=== PATIENT | female | born 1965 | race Caucasian/White ===

== ENCOUNTER 2019-04-18 09:03 | Inpatient (IN) | payer OTHER ==
[~2019-04-18] VITALS: Ht 172.7 cm; Wt 77.8 kg
--- NOTE | 2019-04-18 09:39 | NUR ---
PT MOVED TO ROOM
--- NOTE | 2019-04-18 09:42 | NUR ---
pt to ed from home "I think i'm having a stroke". per pt confused when she woke up at 0730. denies falls/trauma/etoh withdrawal. gait steady. oriented to self. slow to answer. slow to follow commands. unable to breathalyze. drinks 5 shots/day. hypertensive 200s/100s. plan labs/ct/ua. ermd in room for eval. call lindsay in reach. as
--- NOTE | 2019-04-18 09:51 | NUR ---
shara. alexander sent. bgl 106. to ct. as
[2019-04-18] MEDS ORDERED: hydrALAzine 20 MG/ML, 1ML IV ONE (10:00)
[2019-04-18] MEDS ORDERED: hydrALAzine 20 MG/ML, 1ML ONE (10:00)
--- NOTE | 2019-04-18 10:43 | NUR ---
ct shows stroke pt to be admitted. pearrl 2. equal beef lugger. no drift. 5/5 strength all extrem. pt confused to situation/place/time. gets confused following commands. call lindsay in reach. as
[2019-04-18 10:45] LABS: BASOPHILS # (AUTO) 0.03 x10^3/uL (0-0.1); BASOPHILS % (AUTO) 0 % (0-1); EOSINOPHILS # (AUTO) 0.24 x10^3/uL (0-0.4); EOSINOPHILS % (AUTO) 3 % (1-7); LYMPHOCYTES # (AUTO) 1.16 x10^3/uL (1-3.4); LYMPHOCYTES % (AUTO) 16 % (22-44); MD NO; MEAN CORPUSCULAR HEMOGLOBIN 32.3 pg (27.0-34.8); MEAN CORPUSCULAR HGB CONC 33.2 g/dL (32.4-35.8); MEAN CORPUSCULAR VOLUME 97.2 fL (80-100); MEAN PLATELET VOLUME 7.9 fL (7.4-10.4); MONOCYTES # (AUTO) 0.42 x10^3/uL (0.2-0.8); MONOCYTES % (AUTO) 6 % (2-9); NEUTROPHILS # (AUTO) 5.49 x10^3/uL (1.8-6.8); NEUTROPHILS % (AUTO) 75 % (42-75); PLATELET COUNT 334 x10^3/uL (130-400); RED BLOOD COUNT 4.95 x10^6/uL (3.82-5.3); RED CELL DISTRIBUTION WIDTH 12.5 % (9.6-15.2)
[2019-04-18] MEDS ORDERED: ASPIRIN 325 MG TABLET ONE (10:48)
[2019-04-18 10:54] LABS: INTERNATIONAL NORMALIZED RATIO 0.96 (0.93-1.1); PROTHROMBIN TIME 10.1 Seconds (9.6-11.5)
--- NOTE | 2019-04-18 10:57 | NUR ---
DR MENDES SPOKE WITH DR FORD
[2019-04-18] MEDS ORDERED: ASPIRIN 325 MG TABLET PO ONE (11:00)
[2019-04-18] MEDS ORDERED: ONDANSETRON 2MG/ML, 2ML ONE (11:15)
[2019-04-18 11:23] LABS: HCG UR SG 1.021 (1.003-1.030); MICROSCOPIC AUTO
[2019-04-18 11:24] LABS: CULTURE INDICATED? NO
--- NOTE | 2019-04-18 11:24 | NUR ---
PT VOMITING WHILE HOSPITALIST IN ROOM. RECEIVED VERBAL ORDER TO GIVE ZOFRAN, NOTED ON MAR
[2019-04-18] MEDS ORDERED: LORazepam 2 MG/ML, 1ML IV PRN ×3 (11:30)
[2019-04-18] MEDS ORDERED: LORazepam 0.5MG TABLET PO PRN (11:30)
[2019-04-18] MEDS ORDERED: ACETAMINOPHEN 325 MG TABLET PO PRN (11:30)
[2019-04-18] MEDS ORDERED: ONDANSETRON 2MG/ML, 2ML IVPush PRN (11:30)
[2019-04-18] MEDS ORDERED: LORazepam 1MG TABLET PO PRN (11:30)
[2019-04-18] MEDS ORDERED: ONDANSETRON ODT 4 MG PO PRN (11:30)
[2019-04-18] MEDS ORDERED: ONDANSETRON 2MG/ML, 2ML IVPush ONE (11:30)
[2019-04-18 11:33] LABS: ALBUMIN 4.5 g/dL (3.4-5.0); ANION GAP 7 mmol/L (5-15); CALCIUM 9.2 mg/dL (8.5-10.1); CHLORIDE 108 mmol/L (98-107)
--- NOTE | 2019-04-18 11:36 | NUR ---
report to erika alvarado tele 2. as
[2019-04-18 11:38] LABS: ALANINE AMINOTRANSFERASE 28 U/L (12-78); ALKALINE PHOSPHATASE 68 U/L (45-117); BILIRUBIN,TOTAL 0.5 mg/dL (0.2-1.0); TROPONIN I < 0.015 ng/mL (0.000-0.045)
--- NOTE | 2019-04-18 11:46 | NUR ---
pt to rad. as
[2019-04-18] MEDS ORDERED: OMNIPAQUE 350 MG/ML, 100ML BOTTLE ONE (12:40)
[2019-04-18 13:44] VITALS: BP 169/95
[2019-04-18] MEDS: SODIUM CHLORIDE 0.9% 1,000 ML IV SCH (13:49)
[2019-04-18] MEDS: ENOXAPARIN 40 MG/0.4 ML SQ SCH (13:59)
[2019-04-18 20:07] VITALS: BP_SYST 129; BP_SYST 149; BP_DIAS 81; BP_DIAS 90
[2019-04-18] MEDS: ATORVASTATIN 80 MG TABLET PO SCH (21:17)
[2019-04-19] VITALS (9 sets, daily range): BP systolic 133–216; BP diastolic 88–109
[2019-04-19] MEDS: SODIUM CHLORIDE 0.9% 1,000 ML IV SCH ×2 (05:02→20:45)
[2019-04-19] MEDS: ASPIRIN 325 MG TABLET PO SCH (05:02)
[2019-04-19 05:25] LABS: CHOL/HDL RATIO 3.8; LDL/HDL RATIO 2.3 (0.5-3.0)
--- NOTE | 2019-04-19 09:51 | NUR ---
REC: Reg/thins; orange sheet not indicated Addendum: 04/19/19 at 0959 by Kathie RUSHING Amended: Links added.
[2019-04-19] MEDS: ENOXAPARIN 40 MG/0.4 ML SQ SCH (14:29)
[2019-04-19] MEDS ORDERED: LABETALOL 20 MG/4 ML IVPush PRN (14:30)
[2019-04-19] MEDS: LORazepam 1MG TABLET PO PRN ×2 (14:30→18:42)
[2019-04-19] MEDS ORDERED: ENALAPRILAT 1.25 MG/ML, 1ML IV PRN (15:30)
[2019-04-19] MEDS ORDERED: ENALAPRILAT 1.25 MG/ML, 2ML ONE (15:32)
[2019-04-19] MEDS ORDERED: hydrALAzine 20 MG/ML, 1ML IV PRN (17:00)
[2019-04-19] MEDS: ATORVASTATIN 80 MG TABLET PO SCH (20:45)
[2019-04-20 02:28] VITALS: BP 120/89
[2019-04-20] MEDS: ASPIRIN 325 MG TABLET PO SCH (05:00)
[2019-04-20 07:10] VITALS: BP 152/84
[2019-04-20] MEDS ORDERED: LISI5TAB7 PO (10:08)
[2019-04-20] MEDS ORDERED: ATOR-2 PO (10:08)
[2019-04-20] MEDS ORDERED: ASPI325T17 PO (10:08)
== END 2019-04-20 09:35 | disposition home or self-care (01) | DRG 66 ==
LOC: ED 11:10 → EDIP 11:17 → 4EST 13:04
PROVIDERS: ADMIT Internal Medicine; ATTEND Internal Medicine
DX: I63.9 Cerebral infarction, unspecified (principal); I10 Essential (primary) hypertension; R47.01 Aphasia; J32.0 Chronic maxillary sinusitis; J32.2 Chronic ethmoidal sinusitis; R13.10 Dysphagia, unspecified; Z53.20 Procedure and treatment not carried out because of patient's decision for unspecified reasons; G47.00 Insomnia, unspecified; F17.200 Nicotine dependence, unspecified, uncomplicated; Z79.82 Long term (current) use of aspirin; Z82.49 Family history of ischemic heart disease and other diseases of the circulatory system
CPT/HCPCS: 36415; 70450; 70496; 70498; 71045; 80053; 80061; 80307; 81001; 81025; 82140; 82962; 83880; 84484; 85025; 85610; 93005; 93306; 93970; 95816; 96374; 96375; 99285; G0378; J1650; J2405; Q0162; Q9967; J0360; J7030

== ENCOUNTER 2019-06-26 10:07 | Emergency (ER) | payer OTHER ==
[~2019-06-26] VITALS: Ht 167.6 cm; Wt 84.0 kg
[~2019-06-26 10:07] MED LIST: ASPI325T17 PO; ATOR-2 PO; LISI5TAB7 PO
[2019-06-26 10:10] VITALS: BP 160/101
[2019-06-26 10:54] LABS: BASOPHILS # (AUTO) 0.02 x10^3/uL (0-0.1); BASOPHILS % (AUTO) 0 % (0-1); EOSINOPHILS # (AUTO) 0.28 x10^3/uL (0-0.4); EOSINOPHILS % (AUTO) 3 % (1-7); LYMPHOCYTES # (AUTO) 0.63 x10^3/uL (1-3.4); LYMPHOCYTES % (AUTO) 6 % (22-44); MD NO; MEAN CORPUSCULAR HEMOGLOBIN 31.8 pg (27.0-34.8); MEAN CORPUSCULAR VOLUME 93.4 fL (80-100); MEAN PLATELET VOLUME 7.3 fL (7.4-10.4); MONOCYTES # (AUTO) 0.59 x10^3/uL (0.2-0.8); MONOCYTES % (AUTO) 5 % (2-9); NEUTROPHILS % (AUTO) 86 % (42-75); PLATELET COUNT 377 x10^3/uL (130-400); RED BLOOD COUNT 4.27 x10^6/uL (3.82-5.3); RED CELL DISTRIBUTION WIDTH 12.2 % (9.6-15.2)
[2019-06-26] MEDS ORDERED: SODIUM CHLORIDE FLUSH 10ML SYR IVF ONE (11:00)
[2019-06-26] MEDS ORDERED: ONDANSETRON ODT 4 MG ONE (11:01)
[2019-06-26 11:03] LABS: ALANINE AMINOTRANSFERASE 40 U/L (12-78); ANION GAP 6 mmol/L (5-15); CALCIUM 8.9 mg/dL (8.5-10.1); CHLORIDE 108 mmol/L (98-107); CREATININE 0.71 mg/dL (0.55-1.02)
[2019-06-26 11:06] LABS: ALKALINE PHOSPHATASE 82 U/L (45-117); BILIRUBIN,TOTAL 0.6 mg/dL (0.2-1.0); TOTAL PROTEIN 7.4 g/dL (6.4-8.2)
== END 2019-06-26 13:01 | disposition home or self-care (01) ==
LOC: ED 11:59
DX: R20.2 Paresthesia of skin (principal); R11.2 Nausea with vomiting, unspecified; I10 Essential (primary) hypertension
CPT/HCPCS: 36415; 71045; 80053; 85025; 93005; 99285

== ENCOUNTER 2019-10-12 10:44 | Outpatient (CLI) | payer OTHER | END 2019-10-12 23:59 | disposition home or self-care (01) | LOC: CFH 10:44 | PROVIDERS: ATTEND Radiology Diagnostic Radiology | DX: Z12.31 Encounter for screening mammogram for malignant neoplasm of breast (principal); Z12.2 Encounter for screening for malignant neoplasm of respiratory organs; N64.89 Other specified disorders of breast; I25.10 Atherosclerotic heart disease of native coronary artery without angina pectoris; Z87.891 Personal history of nicotine dependence | CPT/HCPCS: 77067; G0297 ==

== ENCOUNTER 2020-01-10 10:27 | Day surgery (SDC) | payer OTHER ==
[~2020-01-10] VITALS: Ht 167.6 cm; Wt 79.1 kg
[~2020-01-10 10:27] MED LIST changes: +PROPOFOL 10 MG/ML, 20ML ONE
[2020-01-10 10:45] VITALS: BP 140/98
[2020-01-10] MEDS ORDERED: HYDROCHLOROTH12.5 MG PO (10:55)
[2020-01-10] MEDS ORDERED: ATOR40TA PO (10:55)
[2020-01-10] MEDS ORDERED: LISI-170 PO (10:55)
[2020-01-10] MEDS ORDERED: MULT-249 PO (10:55)
[2020-01-10 10:59] LABS: BASOPHILS # (AUTO) 0.02 x10^3/uL (0-0.1); BASOPHILS % (AUTO) 0 % (0-1); EOSINOPHILS # (AUTO) 0.54 x10^3/uL (0-0.4); EOSINOPHILS % (AUTO) 8 % (1-7); LYMPHOCYTES # (AUTO) 2.16 x10^3/uL (1-3.4); LYMPHOCYTES % (AUTO) 33 % (22-44); MD NO; MEAN CORPUSCULAR HEMOGLOBIN 30.6 pg (27.0-34.8); MEAN CORPUSCULAR HGB CONC 32.8 g/dL (32.4-35.8); MEAN PLATELET VOLUME 7.3 fL (7.4-10.4); MONOCYTES # (AUTO) 0.41 x10^3/uL (0.2-0.8); MONOCYTES % (AUTO) 6 % (2-9); NEUTROPHILS # (AUTO) 3.46 x10^3/uL (1.8-6.8); NEUTROPHILS % (AUTO) 53 % (42-75); PLATELET COUNT 320 x10^3/uL (130-400); RED BLOOD COUNT 3.76 x10^6/uL (3.82-5.3); RED CELL DISTRIBUTION WIDTH 12.8 % (9.6-15.2)
[2020-01-10] MEDS ORDERED: PLEASE ENTER HEIGHT AND WEIGHT MC SCH (11:00)
[2020-01-10] MEDS ORDERED: SODIUM CHLORIDE 0.9% 1,000 ML IV ONE (11:00)
[2020-01-10 11:11] LABS: ANION GAP 6 mmol/L (5-15); CALCIUM 8.8 mg/dL (8.5-10.1); CHLORIDE 110 mmol/L (98-107)
[2020-01-10 11:14] LABS: ALANINE AMINOTRANSFERASE 23 U/L (12-78); ALKALINE PHOSPHATASE 66 U/L (45-117); BILIRUBIN,TOTAL 0.4 mg/dL (0.2-1.0); CHOL/HDL RATIO 2.6; CHOLESTEROL, TOTAL 170 mg/dL (140-239); CREATININE 1.08 mg/dL (0.55-1.02); HDL CHOL % 38 % (28-40); HDL CHOLESTEROL (DIRECT) 65 mg/dL (40-60); TOTAL PROTEIN 7.1 g/dL (6.4-8.2)
[2020-01-11 14:03] LABS: LDL CHOLESTEROL,CALCULATED 80 mg/dL (54-169); LDL/HDL RATIO 1.2 (0.5-3.0); TRIGLYCERIDES 125 mg/dL (50-200); VLDL CHOLESTEROL 25 mg/dL (0-25)
== END 2020-01-10 12:33 | disposition home or self-care (01) ==
LOC: CACL 10:27
PROVIDERS: ATTEND Internal Medicine Cardiovascular Disease
DX: Q21.1 Atrial septal defect (principal); I34.0 Nonrheumatic mitral (valve) insufficiency; I10 Essential (primary) hypertension; E78.5 Hyperlipidemia, unspecified; F12.90 Cannabis use, unspecified, uncomplicated; Z88.5 Allergy status to narcotic agent; Z20.828 Contact with and (suspected) exposure to other viral communicable diseases; Z79.82 Long term (current) use of aspirin; Z79.899 Other long term (current) drug therapy; Z72.89 Other problems related to lifestyle; Z87.891 Personal history of nicotine dependence; Z83.3 Family history of diabetes mellitus; Z82.49 Family history of ischemic heart disease and other diseases of the circulatory system; Z86.73 Personal history of transient ischemic attack (TIA), and cerebral infarction without residual deficits
CPT/HCPCS: 36415; 80053; 80061; 85025; 87635; 93312; 93321; 93325; J2704

== ENCOUNTER 2020-02-29 07:00 | Day surgery (SDC) | payer OTHER ==
[~2020-02-29] VITALS: Ht 167.6 cm; Wt 82.0 kg
[~2020-02-29 07:00] MED LIST changes: +ATOR40TA PO; +HYDROCHLOROTH12.5 MG PO; +LISI-170 PO; +MULT-249 PO; -PROPOFOL 10 MG/ML, 20ML ONE
[2020-02-29] MEDS ORDERED: SODIUM CHLORIDE 0.9% 1,000 ML IV ONE (07:30)
[2020-02-29 07:32] VITALS: BP 119/90
[2020-02-29 07:57] LABS: BASOPHILS % (AUTO) 1 % (0-1); EOSINOPHILS % (AUTO) 9 % (1-7); LYMPHOCYTES % (AUTO) 29 % (22-44); MEAN CORPUSCULAR HEMOGLOBIN 31.1 pg (27.0-34.8); MEAN CORPUSCULAR HGB CONC 33.5 g/dL (32.4-35.8); MEAN PLATELET VOLUME 7.2 fL (7.4-10.4); MONOCYTES % (AUTO) 7 % (2-9); NEUTROPHILS % (AUTO) 54 % (42-75); PLATELET COUNT 276 x10^3/uL (130-400); RED BLOOD COUNT 3.48 x10^6/uL (3.82-5.3); RED CELL DISTRIBUTION WIDTH 12.9 % (9.6-15.2)
[2020-02-29 08:03] LABS: MD NO
[2020-02-29 08:08] LABS: CALCIUM 8.9 mg/dL (8.5-10.1); CREATININE 1.13 mg/dL (0.55-1.02)
[2020-02-29 08:18] LABS: ANION GAP 6 mmol/L (5-15); CHLORIDE 110 mmol/L (98-107)
[2020-02-29] MEDS ORDERED: FENTANYL PF 250 MCG/5ML ONE (09:15)
[2020-02-29] MEDS ORDERED: MIDAZOLAM 1 MG/ML, 2ML ONE (09:15)
[2020-02-29] MEDS ORDERED: PROPOFOL 50 ML ONE (09:15)
[2020-02-29] MEDS ORDERED: DEXAMETHASONE 4 MG/ML, 1ML ONE (09:24)
[2020-02-29] MEDS ORDERED: SUCCINYLCHOLINE 20 MG/ML, 10ML ONE (09:24)
[2020-02-29] MEDS ORDERED: CEFAZOLIN 1,000 MG ONE (09:24)
[2020-02-29] MEDS ORDERED: PROPOFOL 10 MG/ML, 20ML ONE (09:24)
[2020-02-29] MEDS ORDERED: ONDANSETRON 2MG/ML, 2ML ONE (09:24)
[2020-02-29] MEDS ORDERED: ROCURONIUM 10 MG/ML,10ML ONE (09:24)
[2020-02-29] MEDS ORDERED: LIDOCAINE 1%, 20ML ONE (09:25)
[2020-02-29] MEDS ORDERED: HEPARIN 1,000 UNITS/ML, 10ML ONE ×2 (09:39)
[2020-02-29] MEDS ORDERED: ACETAMINOPHEN 650 MG/20.3 ML UDC PO PRN (10:30)
[2020-02-29] MEDS ORDERED: ONDANSETRON 2MG/ML, 2ML IVPush PRN (10:30)
[2020-02-29] MEDS ORDERED: LABETALOL 20 MG/4 ML IVPush PRN (10:30)
[2020-02-29] MEDS ORDERED: hydrALAzine 20 MG/ML, 1ML IVPush PRN (10:30)
[2020-02-29] MEDS ORDERED: ACETAMINOPHEN 650 MG SUPP PR PRN (10:30)
[2020-02-29] MEDS ORDERED: SODIUM CHLORIDE 0.9% 1,000 ML IV SCH (10:30)
[2020-02-29] MEDS ORDERED: CLOPIDOGREL 300 MG TABLET ONE (11:01)
[2020-02-29] MEDS ORDERED: ASPI81TA45 PO (12:31)
[2020-02-29] MEDS ORDERED: CLOP75TA52 PO (12:31)
[2020-02-29] MEDS ORDERED: CLOPIDOGREL 300 MG TABLET PO ONE (21:00)
[2020-02-29] MEDS ORDERED: ATORVASTATIN 80 MG TABLET PO SCH (21:00)
[2020-03-01] MEDS ORDERED: ASPIRIN 81 MG TABLET EC PO SCH (06:00)
[2020-03-01] MEDS ORDERED: ASPIRIN 325 MG TABLET PO SCH (06:00)
[2020-03-01] MEDS ORDERED: CLOPIDOGREL 75 MG TABLET PO SCH (09:00)
[2020-03-01] MEDS ORDERED: LISINOPRIL 20 MG TABLET PO SCH (09:00)
[2020-03-01] MEDS ORDERED: HYDROCHLOROTHIAZIDE 12.5 MG CAPSULE PO SCH (09:00)
== END 2020-02-29 15:38 | disposition home or self-care (01) ==
LOC: CACL 07:00
PROVIDERS: ATTEND Internal Medicine Cardiovascular Disease
DX: Q21.1 Atrial septal defect (principal); I63.9 Cerebral infarction, unspecified; I34.0 Nonrheumatic mitral (valve) insufficiency; I10 Essential (primary) hypertension; F10.20 Alcohol dependence, uncomplicated; E66.3 Overweight; Z68.27 Body mass index [BMI] 27.0-27.9, adult; Z79.82 Long term (current) use of aspirin; Z79.899 Other long term (current) drug therapy; Z87.891 Personal history of nicotine dependence; Z86.19 Personal history of other infectious and parasitic diseases; Z88.5 Allergy status to narcotic agent; Z81.8 Family history of other mental and behavioral disorders; Z80.3 Family history of malignant neoplasm of breast
CPT/HCPCS: 36415; 76937; 80048; 85025; 85347; 87635; 93005; 93308; 93312; 93325; 93580; C1760; C1769; C1817; C1894; J0330; J0690; J1100; J1644; J2250; J2405; J2704; J3010

== ENCOUNTER → 2020-03-30 | Outpatient (CLI) | payer OTHER ==
[~2020-03-30] MED LIST changes: +ASPI81TA45 PO; +CLOP75TA52 PO
== END | disposition home or self-care (01) ==
LOC: CVU 08:37
PROVIDERS: ATTEND Internal Medicine Cardiovascular Disease
DX: Z01.810 Encounter for preprocedural cardiovascular examination (principal); I65.29 Occlusion and stenosis of unspecified carotid artery; R06.02 Shortness of breath; Q21.1 Atrial septal defect
CPT/HCPCS: 93306

== ENCOUNTER → 2020-06-06 | Outpatient (CLI) | payer OTHER | END | disposition home or self-care (01) | LOC: CVU 08:46 | PROVIDERS: ATTEND Internal Medicine Cardiovascular Disease | DX: I08.1 Rheumatic disorders of both mitral and tricuspid valves (principal); Q21.1 Atrial septal defect | CPT/HCPCS: 93306 ==